=== PATIENT | male | born 1960 | race Caucasian/White ===

== ENCOUNTER 2023-03-04 18:59 | Emergency (ER) | payer BC ==
[~2023-03-04] VITALS: Ht 170.2 cm; Wt 73.6 kg
[2023-03-04 19:40] LABS: BASOPHILS # (AUTO) 0.1 X10'3 (0-0.2); BASOPHILS % (AUTO) 0.6 % (0-1); EOSINOPHILS # (AUTO) 0.1 X10'3 (0-0.9); EOSINOPHILS % (AUTO) 0.5 % (0-6); HEMATOCRIT 46.8 % (42.0-52.0); HEMOGLOBIN 16.3 g/dl (14.0-17.9); LYMPHOCYTES # (AUTO) 1.9 X10'3 (1.1-4.8); LYMPHOCYTES % (AUTO) 12.4 % (21-51); MEAN CORPUSCULAR HEMOGLOBIN 32.8 PG (27.0-31.0); MEAN CORPUSCULAR HGB CONC 34.8 g/dL (33.0-36.5); MEAN CORPUSCULAR VOLUME 94.3 FL (78-98); MEAN PLATELET VOLUME 7.3 FL (7.4-10.4); MONOCYTES # (AUTO) 1.2 X10'3 (0-0.9); MONOCYTES % (AUTO) 7.9 % (2-12); NEUTROPHILS # (AUTO) 11.7 X10'3 (1.8-7.7); NEUTROPHILS % (AUTO) 78.6 % (42-75); PLATELET COUNT 369 X10'3 (140-440); RED BLOOD COUNT 4.96 X10'6 (4.70-6.10); RED CELL DISTRIBUTION WIDTH 14.1 % (11.5-14.5)
[2023-03-04 19:43] LABS: ALANINE AMINOTRANSFERASE 32 U/L (12-78); ALBUMIN 4.3 G/DL (3.4-5.0); ALBUMIN/GLOBULIN RATIO 1.2 (1.1-1.5); ALKALINE PHOSPHATASE 75 IU/L (46-116); ANION GAP 17 (8-16); ASPARTATE AMINO TRANSFERASE 38 U/L (10-37); BILIRUBIN,TOTAL 0.4 MG/DL (0.1-1.0); BLOOD UREA NITROGEN 11 MG/DL (7-18); BUN/CREATININE RATIO 11.2 (10.0-20.0); CALCIUM 9.4 MG/DL (8.5-10.1); CHLORIDE 92 MMOL/L (99-107); CREATININE 0.98 MG/DL (0.60-1.10); ETHANOL 26 MG/DL (<10); GLUCOSE 116 MG/DL (70-104); POTASSIUM 4.1 MMOL/L (3.5-5.1); SODIUM 131 MMOL/L (135-145); TOTAL CARBON DIOXIDE 22.4 MMOL/L (24-32); eCRCL 74 ML/MIN; eGFR 78 ML/MIN
[2023-03-04 23:32] LABS: URINE AMPHETAMINE SCREEN NEGATIVE (Neg); URINE BARBITUATE SCREEN NEGATIVE (Neg); URINE BENZODIAZEPINES SCREEN NEGATIVE (Neg); URINE CANNABINOID SCREEN POSITIVE (Neg); URINE COCAINE SCREEN NEGATIVE (Neg); URINE METHADONE SCREEN NEGATIVE (Neg); URINE OPIATE SCREEN NEGATIVE (Neg); URINE PHENCYCLIDINE SCREEN NEGATIVE (Neg)
[2023-03-05 00:54] VITALS: TEMP 96.7
[2023-03-05] MEDS ORDERED: chlordiazePOXIDE 25mg capsule PO ONE (02:00)
[2023-03-05] MEDS ORDERED: CHLO25CA10 PO (02:03)
[2023-03-05] MEDS ORDERED: GABA600T13 PO (02:03)
[2023-03-05 02:09] VITALS: BP 144/99; PULSE 88; RESP 15; O2SAT 98
== END 2023-03-05 02:10 | disposition home or self-care (01) ==
LOC: ER 19:00
DX: F10.139 Alcohol abuse with withdrawal, unspecified (principal); R25.2 Cramp and spasm; Z72.89 Other problems related to lifestyle; Z79.899 Other long term (current) drug therapy; M32.9 Systemic lupus erythematosus, unspecified; Y90.0 Blood alcohol level of less than 20 mg/100 ml
CPT/HCPCS: 36415; 80053; 80305; 80320; 85025; 99283

== ENCOUNTER 2023-06-29 17:13 | Emergency (ER) | payer BC ==
[~2023-06-29] VITALS: Ht 170.2 cm; Wt 82.5 kg
[~2023-06-29 17:13] MED LIST: CHLO25CA10 PO; GABA600T13 PO
[2023-06-29 17:16] VITALS: BP 157/76; PULSE 80; TEMP 98; O2SAT 96
[2023-06-29] MEDS: CefTRIAXone 2gm/D5W 50ml BAG 50 ML IV ONE (19:01)
[2023-06-29 19:12] LABS: BASOPHILS # (AUTO) 0.1 X10'3 (0-0.2); BASOPHILS % (AUTO) 0.3 % (0-1); EOSINOPHILS # (AUTO) 0.7 X10'3 (0-0.9); EOSINOPHILS % (AUTO) 3.6 % (0-6); HEMOGLOBIN 14.5 g/dl (14.0-17.9); LYMPHOCYTES # (AUTO) 1.8 X10'3 (1.1-4.8); LYMPHOCYTES % (AUTO) 9.3 % (21-51); MEAN CORPUSCULAR HEMOGLOBIN 32.6 PG (27.0-31.0); MEAN CORPUSCULAR HGB CONC 33.7 g/dL (33.0-36.5); MEAN CORPUSCULAR VOLUME 96.9 FL (78-98); MEAN PLATELET VOLUME 8.7 FL (7.4-10.4); MONOCYTES # (AUTO) 1.2 X10'3 (0-0.9); MONOCYTES % (AUTO) 6.4 % (2-12); NEUTROPHILS # (AUTO) 15.3 X10'3 (1.8-7.7); NEUTROPHILS % (AUTO) 80.4 % (42-75); PLATELET COUNT 286 X10'3 (140-440); RED BLOOD COUNT 4.44 X10'6 (4.70-6.10); RED CELL DISTRIBUTION WIDTH 14.6 % (11.5-14.5); WHITE BLOOD COUNT 19.1 X10'3 (4.5-11.0)
[2023-06-29 19:20] LABS: ALBUMIN 4.1 G/DL (3.4-5.0); ANION GAP 6 (8-16); BLOOD UREA NITROGEN 18 MG/DL (7-18); BUN/CREATININE RATIO 14.8 (10.0-20.0); C-REACTIVE PROTEIN 19.24 MG/DL (0.0-0.5); CALCIUM 9.5 MG/DL (8.5-10.1); CHLORIDE 102 MMOL/L (99-107); CREATININE 1.22 MG/DL (0.60-1.10); GLUCOSE 98 MG/DL (70-104); SODIUM 137 MMOL/L (135-145); TOTAL CARBON DIOXIDE 29.3 MMOL/L (24-32); eCRCL 59 ML/MIN; eGFR 60 ML/MIN
[2023-06-29] MEDS: vancomycin/NS 1 GM ADD-VANTAGE 250 ML X 1 DOSE IV ONE (19:36)
[2023-06-29] MEDS: ondansetron/PF 4mg/2ml inj IV ONE (20:10)
[2023-06-29 20:12] VITALS: RESP 14
[2023-06-29] MEDS: morphine 4 MG/ML inj SYRINge IV ONE (20:12)
[2023-06-29] MEDS ORDERED: SULF1TAB45 PO (21:29)
[2023-06-29] MEDS ORDERED: CEPH-585 PO (21:29)
[2023-06-29] MEDS ORDERED: OXYC-145 PO (21:29)
[2023-06-29] MEDS: sulfamethoxazole/trimethoprim DS (800/160mg) tablet PO ONE (23:58)
[2023-06-29] MEDS: cephalexin 500mg capsule PO ONE (23:58)
[2023-06-30] MEDS ORDERED: IBUP-1984 PO (00:35)
== END 2023-06-30 01:09 | disposition home or self-care (01) ==
LOC: ER 17:13
DX: M71.521 Other bursitis, not elsewhere classified, right elbow (principal); Z79.2 Long term (current) use of antibiotics; Z79.1 Long term (current) use of non-steroidal anti-inflammatories (NSAID); Z79.899 Other long term (current) drug therapy
CPT/HCPCS: 36415; 73080; 80048; 83605; 84145; 85025; 85651; 86140; 87040; 96365; 96366; 96368; 96375; 99284; J0696; J2270; J2405; J3370; A4565

== ENCOUNTER 2023-07-21 02:01 | Emergency (ER) | payer BC ==
[~2023-07-21] VITALS: Ht 170.2 cm; Wt 82.0 kg
[~2023-07-21 02:01] MED LIST changes: +OXYC-145 PO
[2023-07-21 02:04] VITALS: TEMP 98.6
[2023-07-21 02:55] VITALS: BP 150/87; PULSE 72; RESP 16; O2SAT 98
[2023-07-21] MEDS: diphenhydrAMINE 50 mg/ml inj IV ONE (03:58)
[2023-07-21] MEDS: normal saline 1000ML IV soln IVB STA (03:58)
[2023-07-21] MEDS: methylPREDNISolone sod succ 125mg/2ml vial IV ONE (03:59)
[2023-07-21] MEDS: VANCOmycin 1250MG/NS 250ml Bag 250 ML IV SCH (04:07)
[2023-07-21] MEDS ORDERED: DIPH25CA83 PO (04:09)
[2023-07-21] MEDS ORDERED: PRED20TA PO (04:09)
[2023-07-21] MEDS ORDERED: CLIN150C2 PO (04:09)
[2023-07-21] MEDS ORDERED: DOXY150T9 PO (04:09)
== END 2023-07-21 06:30 | disposition home or self-care (01) ==
LOC: ER 02:02
DX: M70.21 Olecranon bursitis, right elbow (principal); R21 Rash and other nonspecific skin eruption; T50.905A Adverse effect of unspecified drugs, medicaments and biological substances, initial encounter; Z79.899 Other long term (current) drug therapy; Z79.2 Long term (current) use of antibiotics; Y92.89 Other specified places as the place of occurrence of the external cause
CPT/HCPCS: 96365; 96375; 99284; J1200; J2930; J3370; J7030

== ENCOUNTER 2024-04-08 17:02 | Inpatient (IN) | payer BC, MEDICAID ==
[~2024-04-08] VITALS: Ht 170.2 cm; Wt 85.8 kg
[~2024-04-08 17:02] MED LIST changes: +DIPH25CA83 PO; +GABA-1405 PO; -GABA600T13 PO
[2024-04-08] MEDS ORDERED: heparin 10,000 units/1 ML INJ IV PRN (17:20)
[2024-04-08 17:24] LABS: BASOPHILS % (AUTO) 0.2 % (0-1); EOSINOPHILS % (AUTO) 0.1 % (0-6); HEMATOCRIT 37.5 % (42.0-52.0); HEMOGLOBIN 13.2 g/dl (14.0-17.9); LYMPHOCYTES % (AUTO) 9.6 % (21-51); MEAN CORPUSCULAR HEMOGLOBIN 32.1 PG (27.0-31.0); MEAN CORPUSCULAR HGB CONC 35.3 g/dL (33.0-36.5); MEAN CORPUSCULAR VOLUME 90.9 FL (78-98); MEAN PLATELET VOLUME 7.2 FL (7.4-10.4); MONOCYTES # (AUTO) 0.8 X10'3 (0-0.9); MONOCYTES % (AUTO) 7.2 % (2-12); NEUTROPHILS # (AUTO) 8.7 X10'3 (1.8-7.7); NEUTROPHILS % (AUTO) 82.9 % (42-75); PLATELET COUNT 337 X10'3 (140-440); RED BLOOD COUNT 4.12 X10'6 (4.70-6.10); RED CELL DISTRIBUTION WIDTH 14.3 % (11.5-14.5); WHITE BLOOD COUNT 10.5 X10'3 (4.5-11.0)
[2024-04-08] MEDS: heparin 10,000 units/1 ML INJ IV ONE (17:24)
[2024-04-08] MEDS: heparin 25,000 UNIT/250ml bag 250 ML IV PRN (17:25)
[2024-04-08] MEDS: aspirin 81mg tab.chew PO ONE (17:26)
[2024-04-08] MEDS: MESSAGE TO NURSING IV ONE (17:31)
[2024-04-08] MEDS: nitroGLYCERIN 0.4mg SUBLingual tab SL PRN (17:31)
[2024-04-08] MEDS ORDERED: heparin 1,000unit/ml 10ml vial 10 ML ONE (17:35)
[2024-04-08] MEDS ORDERED: LIDOcaine 1% 30ml preserv. free vial ONE (17:35)
[2024-04-08] MEDS ORDERED: fentaNYL/PF 50MCG/1 ML 2ML syringe ONE (17:35)
[2024-04-08] MEDS ORDERED: midazolam 1 mg/ML 2ml injection ONE (17:35)
[2024-04-08] MEDS ORDERED: verapamil 2.5 mg/ml inj IV ONE (17:35)
[2024-04-08] MEDS ORDERED: nitroGLYCERIN 500mcg/5mL D5W 5 ML IV ONE (17:36)
[2024-04-08] MEDS ORDERED: iohexol 350MG/ML 100ml bottle IV ONE ×2 (17:36→17:53)
[2024-04-08 17:40] LABS: ALANINE AMINOTRANSFERASE 75 U/L (12-78); ALBUMIN 3.1 G/DL (3.4-5.0); ALBUMIN/GLOBULIN RATIO 0.8 (1.1-1.5); ALKALINE PHOSPHATASE 85 IU/L (46-116); ANION GAP 13 (8-16); ASPARTATE AMINO TRANSFERASE 150 U/L (10-37); BILIRUBIN,TOTAL 0.5 MG/DL (0.1-1.0); BLOOD UREA NITROGEN 16 MG/DL (7-18); BUN/CREATININE RATIO 16.5 (10.0-20.0); CALCIUM 8.7 MG/DL (8.5-10.1); CHLORIDE 88 MMOL/L (99-107); CREATININE 0.97 MG/DL (0.60-1.10); GLUCOSE 131 MG/DL (70-104); POTASSIUM 3.4 MMOL/L (3.5-5.1); SODIUM 125 MMOL/L (135-145); TOTAL CARBON DIOXIDE 23.7 MMOL/L (24-32); TOTAL PROTEIN 7.2 G/DL (6.4-8.2); eCRCL 74 ML/MIN; eGFR 78 ML/MIN
[2024-04-08 17:47] LABS: PRO BRAIN NATRIURETIC PEPTIDE 624 PG/ML (0-125)
[2024-04-08] MEDS ORDERED: aspirin 81mg tab.chew ONE (18:00)
[2024-04-08 18:44] LABS: INR 1.2 INR; PROTHROMBIN TIME 12.1 SECONDS (9.0-12.0)
[2024-04-08] MEDS ORDERED: ticagrelor 90mg tablet ONE (18:59)
[2024-04-08 19:30] VITALS: BP 119/73; PULSE 68; RESP 20; TEMP 97.3; O2SAT 90
[2024-04-08] MEDS ORDERED: magnesium Cl slow-release 64mg tablet PO PRN (20:05)
[2024-04-08] MEDS ORDERED: potassium Cl 20 mEq SR tablet PO PRN ×2 (20:05)
[2024-04-08] MEDS ORDERED: mag hydrox/Alum hydrox/simeth 30ml oral suspension PO PRN (20:05)
[2024-04-08] MEDS ORDERED: potassium Cl 40MEQ/1/2NS 520ml 520 ML IV PRN (20:05)
[2024-04-08] MEDS ORDERED: magnesium hydroxide 30ml (MOM) UD suspension PO PRN (20:05)
[2024-04-08] MEDS ORDERED: magnesium sulf-water 4G/100mL 100 ML IV PRN (20:05)
[2024-04-08] MEDS ORDERED: magnesium sulf-water 2g/50mL 50 ML IV PRN (20:05)
[2024-04-08] MEDS ORDERED: morphine 2 MG/ML inj. syringe IV PRN ×2 (20:05)
[2024-04-08] MEDS ORDERED: ondansetron/PF 4mg/2ml inj IV PRN (20:05)
[2024-04-08] MEDS ORDERED: normal saline 1000ml 1,000 ML IV SCH (20:10)
[2024-04-08] MEDS ORDERED: ipratropium/albuterol 3ml nebule NEB PRN (20:55)
[2024-04-08] MEDS ORDERED: ipratropium/albuterol 3ml nebule NEB SCH (21:00)
[2024-04-08 21:10] LABS: HEMOGLOBIN A1C 6.2 % (4.5-6.2)
[2024-04-08] MEDS: methylPREDNISolone sod succ/PF 40mg inj. IV SCH (21:13)
[2024-04-08 21:20] LABS: BILIRUBIN,URINE NEGATIVE (Neg); CLARITY,URINE CLEAR (Clear); COLOR,URINE YELLOW (Yellow); GLUCOSE, URINE NEGATIVE (Neg); KETONES,URINE NEGATIVE (Neg); LEUKOCYTE ESTERASE ,URINE NEGATIVE (Neg); NITRITES, URINE NEGATIVE (Neg); OCCULT BLOOD,URINE SMALL (Neg); PH,URINE 6.5 (4.8-8.0); PROTEIN,URINE TRACE mg/dl (Neg); UROBILINOGEN,URINE 0.2 E.U/dL (0.2-1.0)
[2024-04-08 21:24] VITALS: PULSE 63; RESP 24; O2SAT 94
[2024-04-08] MEDS: ipratropium/albuterol 3ml nebule NEB SCH (21:24)
[2024-04-08] MEDS: budesonide 0.5mg/2ml UD nebule IH SCH (21:24)
[2024-04-08 21:25] LABS: UA COLLECTION TYPE NON-SPECIFIED
[2024-04-08 21:26] LABS: BACTERIA,URINE NONE SEEN /HPF (Neg); RBC,URINE 0-2 /HPF (0-2); SQUAMOUS EPITHELIAL CELL,UR NONE SEEN /LPF (FEW); WBC,URINE NONE SEEN /HPF (0-4)
[2024-04-08 21:29] LABS: SODIUM,URINE RANDOM < 15 MEQ/L
[2024-04-08 21:32] VITALS: PULSE 68
[2024-04-08 21:33] LABS: OSMOLALITY UA 521 MOSM/K (50-1400)
[2024-04-08] MEDS ORDERED: nitroGLYCERIN 0.4mg SUBLingual tab SL PRN (22:20)
[2024-04-08 22:30] VITALS: BP 126/78; PULSE 73; RESP 19; TEMP 97.2; O2SAT 90
[2024-04-08] MEDS: CefTRIAXone/D5W-Rocephin 1gm 50 ML IV ONE (22:34)
[2024-04-08] MEDS ORDERED: proCHLORperazine 10 MG/2 ml inj IV PRN (22:40)
[2024-04-08] MEDS ORDERED: HYDROcodone/acetaminophen 10/325mg tab PO PRN (22:40)
[2024-04-08] MEDS: normal saline 1000ml 1,000 ML IV SCH (22:43)
[2024-04-09] VITALS (12 sets, daily range): BP systolic 121–132; BP diastolic 71–88; PULSE 64–89; RESP 14–24; TEMP 97.3–97.8; O2SAT 85–98
[2024-04-09] MEDS: azithromycin/NS 500mg/250ml 250 ML IV SCH (00:36)
[2024-04-09] MEDS: benzonatate 100mg capsule PO PRN (01:08)
[2024-04-09 06:36] LABS: BASOPHILS % (AUTO) 0.2 % (0-1); EOSINOPHILS % (AUTO) 0.2 % (0-6); HEMATOCRIT 34.1 % (42.0-52.0); HEMOGLOBIN 12.2 g/dl (14.0-17.9); LYMPHOCYTES # (AUTO) 0.4 X10'3 (1.1-4.8); MEAN CORPUSCULAR HEMOGLOBIN 32.8 PG (27.0-31.0); MEAN CORPUSCULAR HGB CONC 35.7 g/dL (33.0-36.5); MEAN CORPUSCULAR VOLUME 91.8 FL (78-98); MONOCYTES # (AUTO) 0.4 X10'3 (0-0.9); MONOCYTES % (AUTO) 4.2 % (2-12); NEUTROPHILS # (AUTO) 8.7 X10'3 (1.8-7.7); NEUTROPHILS % (AUTO) 91.4 % (42-75); PLATELET COUNT 365 X10'3 (140-440); RED BLOOD COUNT 3.71 X10'6 (4.70-6.10); WHITE BLOOD COUNT 9.5 X10'3 (4.5-11.0)
[2024-04-09 06:52] LABS: ALANINE AMINOTRANSFERASE 80 U/L (12-78); ALBUMIN 2.7 G/DL (3.4-5.0); ALBUMIN/GLOBULIN RATIO 0.7 (1.1-1.5); ALKALINE PHOSPHATASE 77 IU/L (46-116); ANION GAP 10 (8-16); ASPARTATE AMINO TRANSFERASE 251 U/L (10-37); BILIRUBIN,TOTAL 0.4 MG/DL (0.1-1.0); BLOOD UREA NITROGEN 13 MG/DL (7-18); BUN/CREATININE RATIO 17.3 (10.0-20.0); CALCIUM 7.9 MG/DL (8.5-10.1); CHLORIDE 90 MMOL/L (99-107); CHOL/HDL RATIO 2.3 (0.00-4.99); CHOLESTEROL 78 MG/DL (0-200); CREATININE 0.75 MG/DL (0.60-1.10); GLUCOSE 172 MG/DL (70-104); HDL CHOLESTEROL 34 MG/DL (35-60); LDL CHOLESTEROL 29 MG/DL (50-100); POTASSIUM 4.3 MMOL/L (3.5-5.1); SODIUM 126 MMOL/L (135-145); TOTAL CARBON DIOXIDE 26.4 MMOL/L (24-32); TOTAL PROTEIN 6.6 G/DL (6.4-8.2); TRIGLYCERIDES 188 MG/DL (20-135); eCRCL 95 ML/MIN; eGFR > 90 ML/MIN
[2024-04-09] MEDS: atorvastatin 20mg tablet PO SCH (08:02)
[2024-04-09] MEDS: ticagrelor 90mg tablet PO SCH (08:02)
[2024-04-09] MEDS: aspirin 81mg tab.chew PO SCH (08:02)
[2024-04-09] MEDS: nicotine 14mg patch - 24hr TD SCH (08:04)
[2024-04-09] MEDS: CefTRIAXone/D5W-Rocephin 1gm 50 ML IV SCH (08:04)
[2024-04-09] MEDS: ipratropium/albuterol 3ml nebule NEB SCH (08:42)
[2024-04-09] MEDS ORDERED: albuterol 2.5 MG/3 ML nebule NEB PRN (17:10)
[2024-04-09] MEDS: K and/or MAG REPLACEMENT MC SCH (20:00)
[2024-04-09] MEDS: acetaminophen 325mg tablet PO PRN (20:13)
[2024-04-09] MEDS: OXAZEpam 15mg capsule PO PRN (20:15)
[2024-04-10] VITALS (11 sets, daily range): BP systolic 114–141; BP diastolic 68–95; PULSE 70–87; RESP 16–20; TEMP 97.2–97.8; O2SAT 86–97
[2024-04-10] MEDS: ondansetron/PF 4mg/2ml inj IV PRN (02:41)
[2024-04-10] MEDS: polyvinyl alcohol eye drops 15ML BOTTLE EACHEYE PRN (02:42)
[2024-04-10 06:38] LABS: BASOPHILS % (AUTO) 0.1 % (0-1); EOSINOPHILS % (AUTO) 0.2 % (0-6); HEMATOCRIT 35.2 % (42.0-52.0); HEMOGLOBIN 12.1 g/dl (14.0-17.9); LYMPHOCYTES # (AUTO) 1.4 X10'3 (1.1-4.8); LYMPHOCYTES % (AUTO) 11.6 % (21-51); MEAN CORPUSCULAR HEMOGLOBIN 31.7 PG (27.0-31.0); MEAN CORPUSCULAR HGB CONC 34.3 g/dL (33.0-36.5); MEAN CORPUSCULAR VOLUME 92.4 FL (78-98); MEAN PLATELET VOLUME 7.4 FL (7.4-10.4); MONOCYTES # (AUTO) 0.8 X10'3 (0-0.9); MONOCYTES % (AUTO) 6.4 % (2-12); NEUTROPHILS % (AUTO) 81.7 % (42-75); PLATELET COUNT 406 X10'3 (140-440); RED BLOOD COUNT 3.81 X10'6 (4.70-6.10); RED CELL DISTRIBUTION WIDTH 13.9 % (11.5-14.5); WHITE BLOOD COUNT 12.3 X10'3 (4.5-11.0)
[2024-04-10 07:17] LABS: ALANINE AMINOTRANSFERASE 83 U/L (12-78); ALBUMIN 2.8 G/DL (3.4-5.0); ALBUMIN/GLOBULIN RATIO 0.7 (1.1-1.5); ALKALINE PHOSPHATASE 71 IU/L (46-116); ANION GAP 9 (8-16); ASPARTATE AMINO TRANSFERASE 122 U/L (10-37); BILIRUBIN,TOTAL 0.4 MG/DL (0.1-1.0); BLOOD UREA NITROGEN 11 MG/DL (7-18); BUN/CREATININE RATIO 16.9 (10.0-20.0); CALCIUM 8.5 MG/DL (8.5-10.1); CHLORIDE 98 MMOL/L (99-107); CREATININE 0.65 MG/DL (0.60-1.10); GLUCOSE 111 MG/DL (70-104); POTASSIUM 3.7 MMOL/L (3.5-5.1); SODIUM 135 MMOL/L (135-145); TOTAL CARBON DIOXIDE 27.9 MMOL/L (24-32); TOTAL PROTEIN 6.8 G/DL (6.4-8.2); eCRCL 110 ML/MIN; eGFR > 90 ML/MIN
[2024-04-10] MEDS: metoprolol succinate 25mg (24-HOUR) SR. Tablet PO SCH (08:54)
[2024-04-10] MEDS: acetaminophen 325mg tablet PO STA (10:41)
[2024-04-10] MEDS ORDERED: TICA90TA PO (10:52)
[2024-04-10] MEDS ORDERED: ATOR20TA66 PO (10:52)
[2024-04-10] MEDS ORDERED: ASPI81TA53 PO (10:52)
[2024-04-10] MEDS ORDERED: METO-395 PO (10:52)
[2024-04-10] MEDS ORDERED: CEFD300C3 PO (10:54)
[2024-04-10] MEDS: furosemide 40mg/4ml inj IV ONE (13:03)
[2024-04-10] MEDS: sacubitril/valsartan 24mg-26mg tablet PO SCH (19:27)
[2024-04-10] MEDS: acetaminophen 325mg tablet PO PRN (23:16)
[2024-04-11] VITALS (12 sets, daily range): BP systolic 104–137; BP diastolic 61–77; PULSE 60–87; RESP 14–31; TEMP 97–98.3; O2SAT 86–99
[2024-04-11 06:54] LABS: BASOPHILS % (AUTO) 0.3 % (0-1); EOSINOPHILS # (AUTO) 0.2 X10'3 (0-0.9); EOSINOPHILS % (AUTO) 1.5 % (0-6); HEMATOCRIT 36.5 % (42.0-52.0); HEMOGLOBIN 12.5 g/dl (14.0-17.9); LYMPHOCYTES % (AUTO) 6.8 % (21-51); MEAN CORPUSCULAR HEMOGLOBIN 32.2 PG (27.0-31.0); MEAN CORPUSCULAR HGB CONC 34.2 g/dL (33.0-36.5); MEAN CORPUSCULAR VOLUME 94.2 FL (78-98); MEAN PLATELET VOLUME 7.7 FL (7.4-10.4); MONOCYTES # (AUTO) 0.8 X10'3 (0-0.9); MONOCYTES % (AUTO) 5.7 % (2-12); NEUTROPHILS # (AUTO) 12.4 X10'3 (1.8-7.7); NEUTROPHILS % (AUTO) 85.7 % (42-75); PLATELET COUNT 493 X10'3 (140-440); RED BLOOD COUNT 3.88 X10'6 (4.70-6.10); RED CELL DISTRIBUTION WIDTH 14.1 % (11.5-14.5); WHITE BLOOD COUNT 14.4 X10'3 (4.5-11.0)
[2024-04-11 07:17] LABS: ALANINE AMINOTRANSFERASE 73 U/L (12-78); ALBUMIN 2.8 G/DL (3.4-5.0); ALBUMIN/GLOBULIN RATIO 0.6 (1.1-1.5); ALKALINE PHOSPHATASE 73 IU/L (46-116); ANION GAP 8 (8-16); ASPARTATE AMINO TRANSFERASE 68 U/L (10-37); BILIRUBIN,TOTAL 0.5 MG/DL (0.1-1.0); BLOOD UREA NITROGEN 15 MG/DL (7-18); CALCIUM 8.9 MG/DL (8.5-10.1); CHLORIDE 96 MMOL/L (99-107); CREATININE 0.75 MG/DL (0.60-1.10); GLUCOSE 104 MG/DL (70-104); POTASSIUM 3.8 MMOL/L (3.5-5.1); SODIUM 134 MMOL/L (135-145); TOTAL CARBON DIOXIDE 30.3 MMOL/L (24-32); TOTAL PROTEIN 7.4 G/DL (6.4-8.2); eCRCL 95 ML/MIN; eGFR > 90 ML/MIN
[2024-04-11] MEDS: methylPREDNISolone sod succ/PF 40mg inj. IV SCH (08:40)
[2024-04-11] MEDS: methylPREDNISolone sod succ 125mg/2ml vial IV ONE (08:48)
[2024-04-11] MEDS ORDERED: methylPREDNISolone sod succ 125mg/2ml vial IV SCH (14:00)
[2024-04-11] MEDS: furosemide 40mg/4ml inj IV ONE (19:43)
[2024-04-12] VITALS (12 sets, daily range): BP systolic 107–140; BP diastolic 68–77; PULSE 51–103; RESP 16–24; TEMP 97.6–98.4; O2SAT 92–99
[2024-04-12 06:54] LABS: EOSINOPHILS % (AUTO) 0 % (0-6); MEAN CORPUSCULAR HGB CONC 35.1 g/dL (33.0-36.5); MEAN PLATELET VOLUME 7.3 FL (7.4-10.4); MONOCYTES # (AUTO) 0.7 X10'3 (0-0.9)
[2024-04-12 06:58] LABS: BASOPHILS % (AUTO) 0.2 % (0-1); HEMATOCRIT 33.8 % (42.0-52.0); HEMOGLOBIN 11.9 g/dl (14.0-17.9); LYMPHOCYTES # (AUTO) 0.5 X10'3 (1.1-4.8); LYMPHOCYTES % (AUTO) 3.1 % (21-51); MEAN CORPUSCULAR HEMOGLOBIN 32.4 PG (27.0-31.0); MEAN CORPUSCULAR VOLUME 92.2 FL (78-98); NEUTROPHILS # (AUTO) 15.8 X10'3 (1.8-7.7); NEUTROPHILS % (AUTO) 92.7 % (42-75); PLATELET COUNT 599 X10'3 (140-440); RED BLOOD COUNT 3.66 X10'6 (4.70-6.10)
[2024-04-12 07:50] LABS: ALANINE AMINOTRANSFERASE 77 U/L (12-78); ALBUMIN 2.6 G/DL (3.4-5.0); ALBUMIN/GLOBULIN RATIO 0.7 (1.1-1.5); ALKALINE PHOSPHATASE 64 IU/L (46-116); ANION GAP 8 (8-16); ASPARTATE AMINO TRANSFERASE 42 U/L (10-37); BILIRUBIN,TOTAL 0.4 MG/DL (0.1-1.0); BLOOD UREA NITROGEN 13 MG/DL (7-18); BUN/CREATININE RATIO 15.9 (10.0-20.0); CHLORIDE 94 MMOL/L (99-107); CREATININE 0.82 MG/DL (0.60-1.10); GLUCOSE 181 MG/DL (70-104); POTASSIUM 3.7 MMOL/L (3.5-5.1); SODIUM 133 MMOL/L (135-145); TOTAL CARBON DIOXIDE 31.2 MMOL/L (24-32); TOTAL PROTEIN 6.6 G/DL (6.4-8.2); eCRCL 87 ML/MIN; eGFR > 90 ML/MIN
[2024-04-13] VITALS (14 sets, daily range): BP systolic 109–155; BP diastolic 58–85; PULSE 68–107; RESP 16–22; TEMP 97–98.4; O2SAT 89–97
[2024-04-13 06:08] LABS: BASOPHILS % (AUTO) 0.1 % (0-1); EOSINOPHILS % (AUTO) 0 % (0-6); HEMATOCRIT 39.7 % (42.0-52.0); HEMOGLOBIN 13.6 g/dl (14.0-17.9); LYMPHOCYTES # (AUTO) 0.7 X10'3 (1.1-4.8); LYMPHOCYTES % (AUTO) 3.1 % (21-51); MEAN CORPUSCULAR HEMOGLOBIN 32.1 PG (27.0-31.0); MEAN CORPUSCULAR HGB CONC 34.2 g/dL (33.0-36.5); MEAN CORPUSCULAR VOLUME 93.7 FL (78-98); MEAN PLATELET VOLUME 7.3 FL (7.4-10.4); MONOCYTES % (AUTO) 4.3 % (2-12); NEUTROPHILS # (AUTO) 21.3 X10'3 (1.8-7.7); NEUTROPHILS % (AUTO) 92.5 % (42-75); PLATELET COUNT 724 X10'3 (140-440); RED BLOOD COUNT 4.23 X10'6 (4.70-6.10)
[2024-04-13 06:14] LABS: ALANINE AMINOTRANSFERASE 114 U/L (12-78); ALBUMIN 3.1 G/DL (3.4-5.0); ALBUMIN/GLOBULIN RATIO 0.7 (1.1-1.5); ALKALINE PHOSPHATASE 69 IU/L (46-116); ANION GAP 6 (8-16); ASPARTATE AMINO TRANSFERASE 49 U/L (10-37); BILIRUBIN,TOTAL 0.5 MG/DL (0.1-1.0); BLOOD UREA NITROGEN 18 MG/DL (7-18); BUN/CREATININE RATIO 24.3 (10.0-20.0); CALCIUM 9.8 MG/DL (8.5-10.1); CHLORIDE 95 MMOL/L (99-107); CREATININE 0.74 MG/DL (0.60-1.10); GLUCOSE 154 MG/DL (70-104); SODIUM 133 MMOL/L (135-145); TOTAL CARBON DIOXIDE 31.6 MMOL/L (24-32); TOTAL PROTEIN 7.4 G/DL (6.4-8.2); eCRCL 97 ML/MIN; eGFR > 90 ML/MIN
[2024-04-13 11:57] LABS: D-DIMER 4.52 MG/L FEU (0-0.50)
[2024-04-13] MEDS ORDERED: iohexol 350MG/ML 100ml bottle IV ONE (16:09)
[2024-04-13] MEDS: furosemide 40mg/4ml inj IV SCH (20:59)
[2024-04-14] VITALS (14 sets, daily range): BP systolic 113–131; BP diastolic 68–82; PULSE 57–118; RESP 12–22; TEMP 96.8–98.1; O2SAT 85–96
[2024-04-14] MEDS: lactose-reduced food (Ensure Enlive) - 237ml bottle PO SCH (07:39)
[2024-04-14 12:53] LABS: HEMOGLOBIN 13.5 g/dl (14.0-17.9); RED CELL DISTRIBUTION WIDTH 14.2 % (11.5-14.5)
[2024-04-14 12:55] LABS: BASOPHILS % (AUTO) 0.1 % (0-1); EOSINOPHILS # (AUTO) 0.1 X10'3 (0-0.9); EOSINOPHILS % (AUTO) 0.3 % (0-6); HEMATOCRIT 39.2 % (42.0-52.0); LYMPHOCYTES # (AUTO) 0.2 X10'3 (1.1-4.8); LYMPHOCYTES % (AUTO) 1.1 % (21-51); MEAN CORPUSCULAR HGB CONC 34.4 g/dL (33.0-36.5); MEAN CORPUSCULAR VOLUME 92.9 FL (78-98); MEAN PLATELET VOLUME 7.2 FL (7.4-10.4); MONOCYTES # (AUTO) 1.1 X10'3 (0-0.9); MONOCYTES % (AUTO) 5.4 % (2-12); NEUTROPHILS # (AUTO) 19.4 X10'3 (1.8-7.7); NEUTROPHILS % (AUTO) 93.1 % (42-75); PLATELET COUNT 753 X10'3 (140-440); RED BLOOD COUNT 4.22 X10'6 (4.70-6.10); WHITE BLOOD COUNT 20.8 X10'3 (4.5-11.0)
[2024-04-14 13:11] LABS: ALANINE AMINOTRANSFERASE 117 U/L (12-78); ALBUMIN 3.2 G/DL (3.4-5.0); ALBUMIN/GLOBULIN RATIO 0.8 (1.1-1.5); ALKALINE PHOSPHATASE 61 IU/L (46-116); ANION GAP 10 (8-16); ASPARTATE AMINO TRANSFERASE 31 U/L (10-37); BILIRUBIN,TOTAL 0.5 MG/DL (0.1-1.0); BLOOD UREA NITROGEN 27 MG/DL (7-18); BUN/CREATININE RATIO 29.3 (10.0-20.0); CALCIUM 10.1 MG/DL (8.5-10.1); CHLORIDE 94 MMOL/L (99-107); CREATININE 0.92 MG/DL (0.60-1.10); GLUCOSE 128 MG/DL (70-104); POTASSIUM 4.4 MMOL/L (3.5-5.1); SODIUM 135 MMOL/L (135-145); TOTAL PROTEIN 7.2 G/DL (6.4-8.2); eCRCL 78 ML/MIN; eGFR 83 ML/MIN
[2024-04-14 19:34] LABS: ABG BASE EXCESS 6.6 mmol/L (-2.0-3.0); ABG HCO3 29.2 mmol/L (21.0-28.0); ABG OXYGEN SATURATION 94.5 % (94.0-98.0); ABG PCO2 (T) 35.3 mmHg (35.0-48.0); ABG PH (T) 7.536 (7.350-7.450); ABG PO2 (T) 70.7 mmHg (83.0-108.0); ALLEN'S TEST POSITIVE; FCOHb 0.6 % (0.5-1.5); FHHb 5.5 % (0.0-5.0); FLOW 6 L/min; FMetHb 0.3 % (0.0-1.5); FO2Hb 93.6 % (94.0-98.0); MODE NASAL CANNULA; PATIENT TEMPERATURE 37.3; TOTAL HEMOGLOBIN 13.8 G/dl (13.5-17.5)
[2024-04-14] MEDS ORDERED: VANCOmycin 1250MG/NS 250ml Bag 250 ML IV SCH (19:39)
[2024-04-14] MEDS: VANCOMYCIN/H2O 1.25G/250mL PB 250 ML IV SCH (21:48)
[2024-04-15] VITALS (8 sets, daily range): BP systolic 104–136; BP diastolic 70–92; PULSE 61–96; RESP 14–22; TEMP 97.2–98.1; O2SAT 90–97
[2024-04-15 06:39] LABS: BASOPHILS % (AUTO) 0.1 % (0-1); EOSINOPHILS % (AUTO) 0.1 % (0-6); HEMATOCRIT 39.2 % (42.0-52.0); HEMOGLOBIN 13.3 g/dl (14.0-17.9); LYMPHOCYTES # (AUTO) 0.5 X10'3 (1.1-4.8); LYMPHOCYTES % (AUTO) 2.8 % (21-51); MEAN CORPUSCULAR HEMOGLOBIN 31.8 PG (27.0-31.0); MEAN CORPUSCULAR HGB CONC 33.8 g/dL (33.0-36.5); MEAN PLATELET VOLUME 7.4 FL (7.4-10.4); MONOCYTES # (AUTO) 0.8 X10'3 (0-0.9); MONOCYTES % (AUTO) 4.8 % (2-12); NEUTROPHILS # (AUTO) 15.6 X10'3 (1.8-7.7); NEUTROPHILS % (AUTO) 92.2 % (42-75); PLATELET COUNT 660 X10'3 (140-440); RED BLOOD COUNT 4.17 X10'6 (4.70-6.10); RED CELL DISTRIBUTION WIDTH 14.4 % (11.5-14.5)
[2024-04-15 07:03] LABS: ALANINE AMINOTRANSFERASE 106 U/L (12-78); ALBUMIN 2.9 G/DL (3.4-5.0); ALBUMIN/GLOBULIN RATIO 0.7 (1.1-1.5); ALKALINE PHOSPHATASE 59 IU/L (46-116); ANION GAP 4 (8-16); ASPARTATE AMINO TRANSFERASE 24 U/L (10-37); BILIRUBIN,TOTAL 0.5 MG/DL (0.1-1.0); BLOOD UREA NITROGEN 28 MG/DL (7-18); BUN/CREATININE RATIO 34.6 (10.0-20.0); CALCIUM 9.4 MG/DL (8.5-10.1); CHLORIDE 95 MMOL/L (99-107); CREATININE 0.81 MG/DL (0.60-1.10); GLUCOSE 147 MG/DL (70-104); POTASSIUM 4.6 MMOL/L (3.5-5.1); SODIUM 133 MMOL/L (135-145); TOTAL CARBON DIOXIDE 33.8 MMOL/L (24-32); TOTAL PROTEIN 6.8 G/DL (6.4-8.2); eCRCL 88 ML/MIN; eGFR > 90 ML/MIN
[2024-04-15 12:13] LABS: URINE AMPHETAMINE SCREEN NEGATIVE (Neg); URINE BARBITUATE SCREEN NEGATIVE (Neg); URINE BENZODIAZEPINES SCREEN NEGATIVE (Neg); URINE CANNABINOID SCREEN NEGATIVE (Neg); URINE COCAINE SCREEN NEGATIVE (Neg); URINE METHADONE SCREEN NEGATIVE (Neg); URINE OPIATE SCREEN NEGATIVE (Neg); URINE PHENCYCLIDINE SCREEN NEGATIVE (Neg)
[2024-04-15] MEDS: HYDROcodone/acetaminophen 5mg/325mg tablet PO PRN (15:01)
[2024-04-16] VITALS (8 sets, daily range): BP systolic 101–129; BP diastolic 65–95; PULSE 60–95; RESP 15–20; TEMP 97.2–98; O2SAT 90–97
[2024-04-16 07:30] LABS: EOSINOPHILS % (AUTO) 0.2 % (0-6); HEMOGLOBIN 13.4 g/dl (14.0-17.9); MEAN PLATELET VOLUME 7.3 FL (7.4-10.4)
[2024-04-16 07:32] LABS: BASOPHILS % (AUTO) 0.1 % (0-1); HEMATOCRIT 39.8 % (42.0-52.0); LYMPHOCYTES # (AUTO) 0.4 X10'3 (1.1-4.8); LYMPHOCYTES % (AUTO) 2.6 % (21-51); MEAN CORPUSCULAR HEMOGLOBIN 31.6 PG (27.0-31.0); MEAN CORPUSCULAR HGB CONC 33.6 g/dL (33.0-36.5); MEAN CORPUSCULAR VOLUME 94.1 FL (78-98); NEUTROPHILS # (AUTO) 15.5 X10'3 (1.8-7.7); NEUTROPHILS % (AUTO) 91.1 % (42-75); PLATELET COUNT 626 X10'3 (140-440); RED BLOOD COUNT 4.23 X10'6 (4.70-6.10); RED CELL DISTRIBUTION WIDTH 14.3 % (11.5-14.5)
[2024-04-16 07:48] LABS: ALANINE AMINOTRANSFERASE 102 U/L (12-78); ALBUMIN 2.9 G/DL (3.4-5.0); ALBUMIN/GLOBULIN RATIO 0.8 (1.1-1.5); ALKALINE PHOSPHATASE 55 IU/L (46-116); ANION GAP 6 (8-16); ASPARTATE AMINO TRANSFERASE 28 U/L (10-37); BILIRUBIN,TOTAL 0.4 MG/DL (0.1-1.0); BLOOD UREA NITROGEN 35 MG/DL (7-18); BUN/CREATININE RATIO 41.2 (10.0-20.0); CALCIUM 9.3 MG/DL (8.5-10.1); CHLORIDE 95 MMOL/L (99-107); CREATININE 0.85 MG/DL (0.60-1.10); GLUCOSE 137 MG/DL (70-104); POTASSIUM 4.8 MMOL/L (3.5-5.1); SODIUM 134 MMOL/L (135-145); TOTAL CARBON DIOXIDE 33.1 MMOL/L (24-32); TOTAL PROTEIN 6.7 G/DL (6.4-8.2); VANCOMYCIN,TROUGH 16.1 ug/mL (10.0-20.0); eCRCL 84 ML/MIN; eGFR > 90 ML/MIN
[2024-04-16] MEDS: VANCOMYCIN LEVEL IV ONE (08:28)
[2024-04-17 02:00] VITALS: BP 119/79; PULSE 63; RESP 20; TEMP 97.4; O2SAT 91
[2024-04-17 07:01] LABS: ALANINE AMINOTRANSFERASE 142 U/L (12-78); ALBUMIN/GLOBULIN RATIO 0.8 (1.1-1.5); ALKALINE PHOSPHATASE 57 IU/L (46-116); ANION GAP 8 (8-16); ASPARTATE AMINO TRANSFERASE 45 U/L (10-37); BASOPHILS # (AUTO) 0.1 X10'3 (0-0.2); BASOPHILS % (AUTO) 0.5 % (0-1); BILIRUBIN,TOTAL 0.5 MG/DL (0.1-1.0); BLOOD UREA NITROGEN 42 MG/DL (7-18); BUN/CREATININE RATIO 44.7 (10.0-20.0); CALCIUM 9.4 MG/DL (8.5-10.1); CHLORIDE 94 MMOL/L (99-107); CREATININE 0.94 MG/DL (0.60-1.10); EOSINOPHILS % (AUTO) 0.1 % (0-6); GLUCOSE 150 MG/DL (70-104); HEMATOCRIT 41.6 % (42.0-52.0); HEMOGLOBIN 13.9 g/dl (14.0-17.9); LYMPHOCYTES # (AUTO) 0.4 X10'3 (1.1-4.8); LYMPHOCYTES % (AUTO) 2.6 % (21-51); MEAN CORPUSCULAR HEMOGLOBIN 31.5 PG (27.0-31.0); MEAN CORPUSCULAR HGB CONC 33.5 g/dL (33.0-36.5); MEAN CORPUSCULAR VOLUME 94.1 FL (78-98); MEAN PLATELET VOLUME 7.7 FL (7.4-10.4); MONOCYTES # (AUTO) 0.9 X10'3 (0-0.9); MONOCYTES % (AUTO) 5.6 % (2-12); NEUTROPHILS # (AUTO) 15.2 X10'3 (1.8-7.7); NEUTROPHILS % (AUTO) 91.2 % (42-75); PLATELET COUNT 592 X10'3 (140-440); POTASSIUM 4.7 MMOL/L (3.5-5.1); RED BLOOD COUNT 4.42 X10'6 (4.70-6.10); RED CELL DISTRIBUTION WIDTH 14.2 % (11.5-14.5); SODIUM 132 MMOL/L (135-145); TOTAL CARBON DIOXIDE 29.8 MMOL/L (24-32); TOTAL PROTEIN 6.8 G/DL (6.4-8.2); WHITE BLOOD COUNT 16.6 X10'3 (4.5-11.0); eCRCL 76 ML/MIN; eGFR 81 ML/MIN
[2024-04-17 07:46] VITALS: PULSE 69; RESP 18; O2SAT 91
[2024-04-17 07:51] VITALS: PULSE 71; RESP 18
[2024-04-17 08:00] VITALS: RESP 18; O2SAT 92
[2024-04-17] MEDS ORDERED: LACT1CAP26 PO (11:59)
[2024-04-17] MEDS ORDERED: PRED10TA23 PO (11:59)
== END 2024-04-17 12:20 | disposition home or self-care (01) | DRG 710 ==
LOC: ER 17:03 → PCU 3S 19:33
PROVIDERS: ADMIT Internal Medicine; ATTEND Internal Medicine
PROC: 027036Z Dilation of Coronary Artery, One Artery with Three Drug-eluting Intraluminal Devices, Percutaneous Approach (ICD-10-PCS; principal; 2024-04-08)
PROC: B2111ZZ Fluoroscopy of Multiple Coronary Arteries using Low Osmolar Contrast (ICD-10-PCS; 2024-04-08)
PROC: B2151ZZ Fluoroscopy of Left Heart using Low Osmolar Contrast (ICD-10-PCS; 2024-04-08)
PROC: B32T1ZZ Computerized Tomography (CT Scan) of Left Pulmonary Artery using Low Osmolar Contrast (ICD-10-PCS; 2024-04-13)
PROC: B32S1ZZ Computerized Tomography (CT Scan) of Right Pulmonary Artery using Low Osmolar Contrast (ICD-10-PCS; 2024-04-13)
DX: A41.9 Sepsis, unspecified organism (principal); J96.01 Acute respiratory failure with hypoxia; I21.29 ST elevation (STEMI) myocardial infarction involving other sites; J18.9 Pneumonia, unspecified organism; I50.20 Unspecified systolic (congestive) heart failure; E87.1 Hypo-osmolality and hyponatremia; I50.82 Biventricular heart failure; I11.0 Hypertensive heart disease with heart failure; Z20.822 Contact with and (suspected) exposure to COVID-19; I25.10 Atherosclerotic heart disease of native coronary artery without angina pectoris; F10.20 Alcohol dependence, uncomplicated; J45.909 Unspecified asthma, uncomplicated; E78.5 Hyperlipidemia, unspecified
CPT/HCPCS: 36415; 36600; 71045; 71250; 71275; 80053; 80061; 80202; 80305; 81001; 82803; 83036; 83605; 83880; 83930; 83935; 84145; 84300; 84484; 85018; 85025; 85379; 85610; 85651; 85730; 87040; 87081; 87502; 87503; 87811; 93005; 93306; 93458; 94640; 94664; 94668; 94760; 96365; 96375; 97116; 97162; 97530; 99152; 99153; 99291; A4615; A4620; C1725; C1751; C1769; C1874; C1894; C9606; G0378; J0456; J0696; J1644; J1650; J1940; J2003; J2250; J2405; J2919; J3010; J3372; J3490; J7030; J7040; Q9967

== ENCOUNTER 2024-07-17 10:06 | Emergency (ER) | payer MEDICAID ==
[~2024-07-17] VITALS: Ht 170.2 cm; Wt 87.0 kg
[~2024-07-17 10:06] MED LIST changes: +ASPI81TA53 PO; +ATOR20TA66 PO; -CHLO25CA10 PO; -DIPH25CA83 PO; +LACT1CAP26 PO; +METO-395 PO; +TICA90TA PO
--- NOTE | 2024-07-17 10:22 | Physician Documentation ---
History of Present Illness ~ Chief Complaint: Shoulder pain Stated Complaint: R SHOULDER PAIN Time Seen by MD: 10:13 Primary Medical Doctor: DR KRISTINE BISHOP HPI 64-year-old male presents to the ED with a complaint of right shoulder pain after falling on it today. States he does not think he dislocated but he tweaked his shoulder pretty good denies any head strikes. Able to move his arm denies any numbness or tingling Tetanus within 5 years?: No (unknown) Medication Reconciliation Allergies: Coded Allergies: No Known Allergies (Unverified , 07/17/24) Scheduled Aspirin (Children's Aspirin), 81 MG PO DAILY@0830 Atorvastatin Calcium (Atorvastatin Calcium), 40 MG PO DAILY Gabapentin (Gabapentin), 1 TAB PO Q8H Lactobacillus Rhamnosus (Culturelle), 1 CAP PO DAILY Metoprolol Succinate (Metoprolol Succinate), 25 MG PO DAILY Ticagrelor (Brilinta), 90 MG PO BID Scheduled PRN Oxycodone HCl/Acetaminophen (Percocet 5-325 mg Tablet), 1 TAB PO TID PRN PRN for elbow pain Past Medical History Past Medical History: No Pertinent History Past Surgical History: no surgical history Patient History: Arthritis FATHER, , Cause: Old age FH: dementia FATHER, , Cause: Old age Alcohol Use: None Drug Use: none Review of Systems All Other Systems at this time: Reviewed and Negative ROS As stated above in the HPI, otherwise all systems are reviewed and negative. Physical Exam Vital Signs: Temperature: 97.8, Source: Temporal, Heart Rate: 89, Respiratory Rate: 18, BP: 158/96, Pulse Oximetry: 98, Weight: 100.200 Physical Exam General: Alert, no apparent distress. Neck: Full range of motion. Extremities: Pain with range of motion of the right shoulder negative drop-arm test ,no deformity. Neurologic: Oriented x4. Psychiatric: Normal mood and affect. Skin: Normal color, warm and dry. No edema, no ecchymosis. Progress Results/Orders Results/Orders Orders - MORRIS GOMEZ WELD ENGINEER Shoulder, Complete (Min 2 Vws) (07/17/24 10:23) Completed Orders - MORRIS GOMEZ WELD ENGINEER Shoulder, Complete (Min 2 Vws) (07/17/24 10:23) Ketorolac Trometh 15mg/Ml Vial (Toradol (07/17/24 10:40) Medications Received in ER Medications (Trade) Dose Ordered Sig/[place] Route PRN Reason Start Time Stop Time Status Last Admin Dose Admin (Toradol injection) 15 mg ONCE ONCE IM 07/17/24 10:40 07/17/24 10:41 DC 07/17/24 10:54 15 MG Vital Signs 07/17/24 07/17/24 10:13 11:20 Temp 97.8 97.7 Pulse 70 74 Resp 16 16 B/P (MAP) 170/92 130/70 Pulse Ox 100 98 Medical Decision Making Findings My interpretation of patient's right shoulder x-ray I do not see any sign of fracture dislocation subluxation or any AC separation advised the patient to rest his shoulder take ibuprofen and ice as needed in 20 minute intervals Differential Dx:Considerations: Include: AC separation, Adhesive capsulitis, arthritis, Bicipital tendonitis, Calcific tendonitis, Cervical disc disease, Contusion, Dislocation, Fracture: Humerus, Fracture: Scapula, Fracture: Cl avicle, Gallbladder Disease, Hematoma, Impingement syndrome, Myocardial infarction, Neurovascular Injury, Rotator cuff injury, SC dislocation, Sprain, Subacromial bursitis, other Departure Disposition: HOME / SELF CARE / HOMELESS Impression: Primary Impression: Strain of shoulder Condition: Stable Discharge Instructions: Shoulder Pain, [id number] Referrals: NO PRIMARY CARE PROVIDER (PCP) Signature Scribe Signature: f Attestation: The note accurately reflects work and decisions made by me.Morris French NP 07/17/24 16:17 MORRIS GOMEZ NP Jul 17, 2024 10:22
[2024-07-17] MEDS: ketorolac trometh 15mg/ml vial 15 MG/ML ML IM ONE (10:54)
[2024-07-17 11:20] VITALS: BP 130/70; PULSE 74; RESP 16; TEMP 97.7; O2SAT 98
--- NOTE | 2024-07-17 12:46 | RADIOLOGY REPORT ---
CLINICAL INDICATION: Shoulder Pain TECHNIQUE: 3 radiographic views of the right shoulder were obtained. Comparison: None FINDINGS/IMPRESSION: There is no evidence of acute fracture or dislocation. The visualized joint space is well maintained. The alignment is anatomical. There is no radiopaque foreign body.
== END 2024-07-17 11:21 | disposition home or self-care (01) ==
LOC: ER 10:07
DX: S46.911A Strain of unspecified muscle, fascia and tendon at shoulder and upper arm level, right arm, initial encounter (principal); Z79.82 Long term (current) use of aspirin; W19.XXXA Unspecified fall, initial encounter; Y93.89 Activity, other specified; Y92.89 Other specified places as the place of occurrence of the external cause; Y99.8 Other external cause status
CPT/HCPCS: 73030; 96372; 99283; J1885